=== PATIENT | male | born 1970 | race Caucasian/White ===

== ENCOUNTER → 2016-10-06 | Outpatient (CLI) | payer OTHER ==
--- NOTE | 2016-10-06 14:36 | RAD ---
EXAM: Ultrasound left upper arm. HISTORY: Hematoma. COMPARISON: None. FINDINGS: Sonographic evaluation of the palpable focus along the left upper arm was performed. This reveals an aneurysmal vessel that measures up to 4.0 x 3.8 cm in diameter. There is internal flow, but the waveform is not clearly directional, suggesting turbulent flow. No clear hematoma or pseudoaneurysm is identified. IMPRESSION: 1. 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 Internal flow characteristics are unclear based on these images, most likely secondary to turbulence. A fistula Doppler study could further evaluate if there is persistent concern. 2. No clear soft tissue hematoma is identified.
== END | disposition home or self-care (01) ==
LOC: US 10:13
PROVIDERS: ATTEND Nurse Practitioner Family
DX: S40.022A Contusion of left upper arm, initial encounter (principal); X58.XXXA Exposure to other specified factors, initial encounter; Y93.89 Activity, other specified; Y92.89 Other specified places as the place of occurrence of the external cause; Y99.8 Other external cause status
CPT/HCPCS: 76881

== ENCOUNTER 2016-10-13 19:29 | Emergency (ER) | payer OTHER ==
[~2016-10-13] VITALS: Ht 175.3 cm; Wt 83.5 kg
--- NOTE | 2016-10-13 20:00 | ED.ADGEN ---
Adult General HPI HPI Patient is a 45-year-old man, history of end-stage renal disease on hemodialysis , COPD, hypertension, hyperlipidemia, obesity, who presents to the emergency department from a correctional facility with a complaint of left arm pain. Patient states left arm was throbbing. This improved at this time after receiving fentanyl en route. Per report from facility officers, patient had what sounds like a thrombectomy performed today of his AV fistula in left upper extremity at [facility]. Due to security reasons, the patient was transported to [facility] for evaluation. EMS reports of the patient reportedly was experiencing labile blood pressures at the facility, currently is 103/60, has been at this range since their arrival. Noted to have oxygen saturation in the upper to mid 80s, was placed on O2 en route to the ED, when pulse oximeter is switched from left hand, site of the graft, to the right hand, oxygen saturation is in the upper 90s on room air. Heart rate is in the 40s to 50s, patient does take metoprolol. Patient received 50 g of fentanyl en route to the emergency department, currently states that his pain is about a 3 which is tolerable. Patient states he has not received any pain medication at the facility after being discharged from the hospital until today. No additional paperwork is available at this time. Patient denies any chest pain or shortness breath, any nausea or vomiting, any weakness, any increased swelling. States his last dialysis session was Wednesday, he is scheduled receive dialysis again tomorrow. Review of Systems Review of Systems Constitutional: Denies fever or chills [] Eyes: Denies change in visual acuity, redness, or eye pain [] HENT: Denies nasal congestion or sore throat [] Respiratory: Denies cough or shortness of breath [] Cardiovascular: No additional information not addressed in HPI [] GI: Denies abdominal pain, nausea, vomiting, bloody stools or diarrhea [] : Denies dysuria or hematuria [] Musculoskeletal: Denies back pain or joint pain. Pain in the left upper extremity, status post presumed thrombectomy procedure. Integument: Denies rash or skin lesions [] Neurologic: Denies headache, focal weakness or sensory changes [] Endocrine: Denies polyuria or polydipsia [] Allergies Allergies Allergies Coded Allergies Type Severity Reaction Last Updated Verified Penicillins Allergy Unknown 10/13/16 Yes vancomycin Allergy Unknown 10/13/16 Yes Physical Exam Physical Exam Constitutional: Well developed, well nourished, no acute distress, chronically ill in appearance. [] HENT: Normocephalic, atraumatic, bilateral external ears normal, oropharynx moist, no oral exudates, nose normal. [Nasal cannula in place.] Eyes: PERRLA, EOMI, conjunctiva slightly jaundiced, no discharge. [] Neck: Normal range of motion, no tenderness, supple, no stridor. [] Cardiovascular: Bradycardic, S1, S2, rubs or gallops. No murmurs. [] Lungs & Thorax: Diminished breath sounds at bases bilaterally, no rhonchi or rales. No chest wall crepitus or tenderness. Patient with a left-sided subclavian dialysis catheter in place, insertion site is clean dry and intact with clean dressing in place. Abdomen: Bowel sounds normal, soft, no tenderness, no masses, no pulsatile masses. [] Skin: Warm, dry, no erythema, no rash. [] Back: No tenderness, no CVA tenderness. [] Extremities: Patient with 14 cm surgical incision, which is hemostatic with Steri-Strips in place across the left AV fistula site, there is a thrill noted, area does not have any evidence of surrounding erythema, drainage, evidence of dehiscence. Mild swelling noted in the remaining arm, patient states that the pain is located just below the incision site, we does have swelling, which is consistent with a post procedure state. No cyanosis, no clubbing, ROM intact, no edema. [] Neurologic: Alert and oriented X 3, normal motor function, normal sensory function, no focal deficits noted. [] Psychologic: Affect normal, judgement normal, mood normal. [] Current Patient Data Vital Signs Vital Signs Date Time Temp Pulse Resp B/P (MAP) Pulse Ox O2 Delivery O2 Flow Rate FiO2 10/13/16 19:29 97.5 86 12 91 Nasal Cannula 2.0 Lab Results Laboratory Tests Test 10/13/16 20:05 White Blood Count 9.7 x10^3/uL (4.0-11.0) Red Blood Count 2.80 x10^6/uL (4.30-5.70) L Hemoglobin 8.5 g/dL (13.0-17.5) L Hematocrit 26.1 % (39.0-53.0) L Mean Corpuscular Volume 93 fL (79-100) Mean Corpuscular Hemoglobin 31 pg (25-35) Mean Corpuscular Hemoglobin Concent 33 g/dL (31-37) Red Cell Distribution Width 16.2 % (11.5-14.5) H Platelet Count 49 x10^3/uL (140-400) L Neutrophils (%) (Auto) 84 % (31-73) H Lymphocytes (%) (Auto) 5 % (24-48) L Monocytes (%) (Auto) 9 % (0-9) Eosinophils (%) (Auto) 2 % (0-3) Basophils (%) (Auto) 1 % (0-3) Neutrophils # (Auto) 8.1 x10^3uL (1.8-7.7) H Lymphocytes # (Auto) 0.5 x10^3/uL (1.0-4.8) L Monocytes # (Auto) 0.8 x10^3/uL (0.0-1.1) Eosinophils # (Auto) 0.2 x10^3/uL (0.0-0.7) Basophils # (Auto) 0.1 x10^3/uL (0.0-0.2) Platelet Estimate Decreased (ADEQUATE) Ovalocytes Occ Sodium Level 135 mmol/L (136-145) L Potassium Level 5.6 mmol/L (3.5-5.1) H Chloride Level 98 mmol/L (98-107) Carbon Dioxide Level 27 mmol/L (21-32) Anion Gap 10 (6-14) Blood Urea Nitrogen 88 mg/dL (8-26) H Creatinine 8.6 mg/dL (0.7-1.3) H Estimated GFR (Cockcroft-Gault) 6.7 Glucose Level 86 mg/dL (70-99) Calcium Level 8.3 mg/dL (8.5-10.1) L EKG EKG EC: Sinus bradycardia, heart rate 53 beats minute, upright axis, QTC of 483, FL of 214, QRS of 112, incomplete right bundle-branch block noted, contour normality is noted in the inferior leads, abnormal ECG, does not meet STEMI criteria. No prior for comparison. As interpreted by me. [] Radiology/Procedures Radiology/Procedures Chest x-ray: One view: Patient with significant cardiomegaly, underlying lung, patient with left-sided catheter in place, no pneumothorax, no infiltrates, no soft tissue or bony amount is identified. No prior for comparison. [As interpreted by me.] Course & Med Decision Making Course & Med Decision Making Pertinent Labs and Imaging studies reviewed. (See chart for details) Records obtained from [facility], reveal that the patient had a revision of the left upper arm AV fistula with resection of fistular aneurysm and evacuation of the left upper arm hematoma performed by Dr. Cristobal this afternoon. Noted in his dictation is the patient's perioperative platelet count of 69,000, laboratory studies included in the paperwork from [facility] from today's date state a platelet count of 57,000, although it was unclear if this was done pre-or postoperatively, patient's hemoglobin on laboratory studies from today's date reveal hemoglobin is 8.8, with an INR of 1.5, PTT of 45, and PT of 18.4, white count of 5.9. At that time the potassium was 4.8, with a sodium of 133, chloride of 92, CO2 of 24. Patient's oxygen saturation remains stable, upper 90s on room air, blood pressure is labile, mid 90s over 50s, with heart rate remaining in the 40s to 50s, sinus bradycardia. Attempted to obtain patient's general medical history and information, was told was unavailable from the correctional facility at this time, although it appears the recent vital signs have noted a blood pressure of 140s to 160s over 70s and 80s, and heart rates in the 60s and 70s. As stated, patient is on metoprolol, but it is unclear if he received this medication today. No indication for emergent dialysis at this time. As stated, patient's incision site appears clean dry and intact, no evidence of reaccumulation of hematoma and his pain is controlled after a single dose of fentanyl. I did discuss findings as above with Dr. Trevizo of vessel or surgery, they're not appear to be any complications stemming with a procedure, however with the patient's persistent hypotension and bradycardia, and need for dialysis, admission is warranted, and he states that his group will be able to evaluate the patient at [facility] if it is required. I did speak with Dr. Payan of internal medicine at [facility], patient was accepted to her service for continued monitoring, and dialysis to be performed at [facility]. Transfer paperwork was completed. Patient remains to have blood pressures from the low 100s to 80s over 60s, with normal mentation, resting comfortably in the ED, in sinus bradycardia, awaiting transfer to [facility]. Final Impression Final Impression [] Problems: Dragon Disclaimer Dragon Disclaimer This electronic medical record was generated, in whole or in part, using a voice recognition dictation system. Departure: Impression: Primary Impression: Hypotension Additional Impression: Bradycardia Disposition: XFER OTHER Condition: STABLE BARBARA RAE DO Oct 13, 2016 20:00
[2016-10-13 20:24] LABS: BASO # 0.1 x10^3/uL (0.0-0.2); BASO % 1 % (0-3); EOS # 0.2 x10^3/uL (0.0-0.7); EOS % 2 % (0-3); HEMATOCRIT 26.1 % (39.0-53.0); HEMOGLOBIN 8.5 g/dL (13.0-17.5); LYMPH # 0.5 x10^3/uL (1.0-4.8); LYMPH % 5 % (24-48); MEAN CORPUSCULAR HEMOGLOBIN 31 pg (25-35); MEAN CORPUSCULAR HGB CONC 33 g/dL (31-37); MEAN CORPUSCULAR VOLUME 93 fL (79-100); MONO # 0.8 x10^3/uL (0.0-1.1); MONO % 9 % (0-9); NEUT # 8.1 x10^3uL (1.8-7.7); NEUT % 84 % (31-73); PLATELET COUNT 49 x10^3/uL (140-400); RED CELL DISTRIBUTION WIDTH 16.2 % (11.5-14.5); WHITE BLOOD COUNT 9.7 x10^3/uL (4.0-11.0)
[2016-10-13 20:44] LABS: CALCIUM 8.3 mg/dL (8.5-10.1); CREATININE 8.6 mg/dL (0.7-1.3); GFR 6.7; POTASSIUM 5.6 mmol/L (3.5-5.1)
[2016-10-13 21:14] LABS: OVALOCYTES OCC; PLT ESTIMATE DECREASED (ADEQUATE)
[2016-10-13 22:34] VITALS: BP 105/69
[2016-10-13] MEDS ORDERED: fentaNYL PF 100 MCG/2 ML VIAL ONE (22:38)
[2016-10-13] MEDS ORDERED: ONDANSETRON PF 4 MG/2 ML VIAL. ONE (22:42)
[2016-10-13] MEDS ORDERED: ONDANSETRON PF 4 MG/2 ML VIAL. IV ONE (22:45)
[2016-10-13] MEDS ORDERED: fentaNYL PF 100 MCG/2 ML VIAL IM ONE (23:00)
[2016-10-13] MEDS ORDERED: fentaNYL PF 100 MCG/2 ML VIAL IV ONE (23:00)
--- NOTE | 2016-10-14 05:59 | EKG ---
[address] [address] Test Date: 2016-10-13 Test Time: 19:56:30 Pat Name: PATTI JACKSON Department: Room: Gender: M Medication Assistant: : 1970 Requested By: BARBARA RAE Order Number: [id number] Reading MD: Measurements Intervals [place] Rate: 43 P: 44 WI: 214 QRS: 25 QRSD: 112 T: -36 QT: 570 QTc: 483 Interpretive Statements SINUS BRADYCARDIA INCOMPLETE RIGHT BUNDLE BRANCH BLOCK QRS(T) CONTOUR ABNORMALITY CANNOT RULE OUT ANTEROSEPTAL MYOCARDIAL DAMAGE T ABNORMALITY IN INFERIOR LEADS PROLONGED QT RI6.01 Unconfirmed report No previous ECG available for comparison
--- NOTE | 2016-10-14 09:27 | RAD ---
Indication difficulty breathing. Hypoxia. Hypertension. A single view of the chest was obtained. No prior imaging of the chest is available. The cardiac silhouette is enlarged. There is no gross congestive heart failure. A focal infiltrate is not seen. Significant pleural fluid is not present and there is no pneumothorax. Left-sided dialysis catheter is noted. IMPRESSION: Enlarged cardiac silhouette. No acute or focal process seen in the chest
== END 2016-10-13 22:42 | disposition short-term general hospital (02) ==
LOC: ER 19:29 → EDBD 19:29 → ER 22:42
DX: I95.9 Hypotension, unspecified (principal); M79.602 Pain in left arm; R00.1 Bradycardia, unspecified; I12.0 Hypertensive chronic kidney disease with stage 5 chronic kidney disease or end stage renal disease; N18.6 End stage renal disease; E78.5 Hyperlipidemia, unspecified; E66.9 Obesity, unspecified; Z68.27 Body mass index [BMI] 27.0-27.9, adult; Z99.2 Dependence on renal dialysis; Z92.82 Status post administration of tPA (rtPA) in a different facility within the last 24 hours prior to admission to current facility; Z88.0 Allergy status to penicillin; Z88.1 Allergy status to other antibiotic agents
CPT/HCPCS: 36415; 71010; 80048; 85008; 85027; 93005; 96374; 96375; 99285; J2405; J3010